=== PATIENT | female | born 1965 | race Caucasian/White ===

== ENCOUNTER 2019-02-07 12:31 | Emergency (ER) | payer OTHER ==
[~2019-02-07] VITALS: Ht 160 cm; Wt 70.0 kg
[2019-02-07 12:38] VITALS: BP 128/91
--- NOTE | 2019-02-07 13:20 | NUR ---
PT TO RADIOLOGY
--- NOTE | 2019-02-07 14:00 | NUR ---
REPORT FROM YUNIER CUMMINS PATIENT RESTING COMFORTABLY ON GURNEY ALERT/ORIENTED/NO NEURO DEFICITS NOTED REPORTED CONTINUED LEFT ANKLE PAIN- ELEVATED/ICE PACK PLACED WELL PETEY WRAP CMS INTACT POST TREATMENT ALSO PROVIDED WITH CRUTCHES- CRUTCH WALKED TO RESTROOM W/ NO DIFFICULTY CT CALLED TO EXPEDITE EXAM- TECH TO SCAN PATIENT IMMEDIATELY
--- NOTE | 2019-02-07 14:30 | NUR ---
TO CT SCAN
[2019-02-07] MEDS ORDERED: HYDROcodone/APAP 5/325 TABLET PO ONE (15:00)
[2019-02-07] MEDS ORDERED: HYDROcodone/APAP 5/325 TABLET ONE (15:10)
--- NOTE | 2019-02-07 15:28 | NUR ---
PATIENT DISCHARGED IN THE COMPANY OF HER BOSS WHO WILL BE DRIVING HER HOME MOMENT AFTER BEING MEDICATED WITH 5MG OF NORCO. DIABETIC EDUCATOR COMFORTABLE SENDING HER HOME IN SETTING OF RECENT NARCOTIC ADMIN PATIENT NOT NAIVE TO NARCOTICS AND REPORTS SHE WILL BE WATCHED BY ROOMATE FOR THE REST OF THE DAY. REVIEWED RICE/NEUROLOGICAL SXS TO WATCH FOR NECCESATATING RETURN TO MEDICAL CARE
== END 2019-02-07 15:31 | disposition home or self-care (01) ==
LOC: ED 15:25
DX: S93.402A Sprain of unspecified ligament of left ankle, initial encounter (principal); S09.90XA Unspecified injury of head, initial encounter; W01.0XXA Fall on same level from slipping, tripping and stumbling without subsequent striking against object, initial encounter; Y93.89 Activity, other specified; Y92.69 Other specified industrial and construction area as the place of occurrence of the external cause; Y99.0 Civilian activity done for income or pay
CPT/HCPCS: 70450; 72050; 99284

== ENCOUNTER 2020-10-14 20:19 | Inpatient (IN) | payer MEDICAID, OTHER ==
[~2020-10-14] VITALS: Ht 160 cm; Wt 56.0 kg
[2020-10-14] MEDS ORDERED: ONDANSETRON 2MG/ML, 2ML ONE ×2 (20:54→23:18)
[2020-10-14] MEDS ORDERED: METOCLOPRAMIDE 5 MG/ML, 2ML ONE (20:54)
[2020-10-14] MEDS ORDERED: MORPHINE SULFATE 4 MG/ML, 1ML ONE (20:55)
[2020-10-14] MEDS ORDERED: MORPHINE SULFATE 4 MG/ML, 1ML IVPush PRN (21:00)
[2020-10-14] MEDS ORDERED: ONDANSETRON 2MG/ML, 2ML IVPush ONE (21:00)
[2020-10-14] MEDS ORDERED: METOCLOPRAMIDE 5 MG/ML, 2ML IVPush ONE (21:00)
[2020-10-14 21:10] LABS: BASOPHILS % (AUTO) 1 % (0-1); EOSINOPHILS % (AUTO) 0 % (1-7); LYMPHOCYTES % (AUTO) 11 % (22-44); MD SCAN; MEAN CORPUSCULAR HEMOGLOBIN 34.8 pg (27.0-34.8); MEAN CORPUSCULAR HGB CONC 34.3 g/dL (32.4-35.8); MEAN PLATELET VOLUME 7.8 fL (7.4-10.4); MONOCYTES % (AUTO) 4 % (2-9); NEUTROPHILS % (AUTO) 83 % (42-75); PLATELET COUNT 355 x10^3/uL (130-400); RED BLOOD COUNT 4.25 x10^6/uL (3.82-5.3); RED CELL DISTRIBUTION WIDTH 13.9 % (9.6-15.2)
[2020-10-14 21:16] LABS: ALANINE AMINOTRANSFERASE 23 U/L (12-78); ALBUMIN 4.5 g/dL (3.4-5.0); ANION GAP 7 mmol/L (5-15); CALCIUM 10.1 mg/dL (8.5-10.1); CHLORIDE 94 mmol/L (98-107); CREATININE 0.88 mg/dL (0.55-1.02)
[2020-10-14 21:18] LABS: ALKALINE PHOSPHATASE 138 U/L (45-117); BILIRUBIN,TOTAL 0.9 mg/dL (0.2-1.0)
--- NOTE | 2020-10-14 21:57 | NUR ---
phoned ct scan, pt next up for scan
--- NOTE | 2020-10-14 21:58 | NUR ---
pt resting in [facility], states relief from pain and nausea at this time
[2020-10-14] MEDS ORDERED: OMNIPAQUE 350 MG/ML, 100ML BOTTLE ONE (22:12)
[2020-10-14] MEDS ORDERED: SODIUM CHLORIDE 0.9% 1,000ML IVBOLUS ONE (23:00)
[2020-10-14] MEDS ORDERED: DIPHENHYDRAMINE 25 MG CAPSULE PO ONE (23:00)
[2020-10-14] MEDS ORDERED: DIPHENHYDRAMINE 25 MG CAPSULE ONE (23:01)
--- NOTE | 2020-10-14 23:52 | NUR ---
pt given po benadry and some water. pt able to keep down without any vomiting at this time.
[2020-10-15] MEDS ORDERED: ONDANSETRON 2MG/ML, 2ML IVPush ONE
[2020-10-15] MEDS ORDERED: ZIPRASIDONE 20 MG INJ IM ONE ×2 (00:17→00:30)
--- NOTE | 2020-10-15 00:45 | NUR ---
break rn- pt requested medication for vomiting and to help her sleep. pt a/o x4 and on monitor with vss. pt medicated per mar
[2020-10-15] MEDS ORDERED: LABETALOL 5MG/ML, 20ML IVPush PRN (01:00)
[2020-10-15] MEDS ORDERED: LORazepam 2 MG/ML, 1ML IVPush PRN (01:00)
[2020-10-15] MEDS ORDERED: DOCUSATE 100 MG CAPSULE PO PRN (01:00)
[2020-10-15] MEDS ORDERED: PROMETHAZINE 25 MG/ML, 1ML IM PRN (01:00)
[2020-10-15] MEDS ORDERED: HEPARIN 5,000 UNITS/ML, 1ML ONE ×2 (01:39→08:21)
[2020-10-15] MEDS: HEPARIN 5,000 UNITS/ML, 1ML SQ SCH ×3 (01:50→18:37)
[2020-10-15] MEDS: SODIUM CHLORIDE 0.9% 1,000 ML IV SCH ×2 (01:50→11:00)
--- NOTE | 2020-10-15 01:51 | NUR ---
pt medicated per emar, ekg taken, pt on all monitors and on hospital bed. no other needs at this time
--- NOTE | 2020-10-15 03:53 | NUR ---
PT AMBULATED STEADY TO RESTROOM, PLACED BACK ON ALL MONITORS, LAYING IN BED
[2020-10-15] MEDS ORDERED: PROMETHAZINE 25 MG/ML, 1ML ONE (04:02)
--- NOTE | 2020-10-15 05:13 | NUR ---
PT STATES FEELING LESS NAUSEAOUS, RESTING IN BED, NO OTHER NEEDS AT THIS TIME
--- NOTE | 2020-10-15 07:10 | NUR ---
REPORT GIVEN TO PLACIDO GONZALES
[2020-10-15 07:32] LABS: BASOPHILS % (AUTO) 0 % (0-1); EOSINOPHILS % (AUTO) 0 % (1-7); LYMPHOCYTES % (AUTO) 14 % (22-44); MEAN CORPUSCULAR HEMOGLOBIN 34.7 pg (27.0-34.8); MEAN CORPUSCULAR HGB CONC 33.8 g/dL (32.4-35.8); MEAN PLATELET VOLUME 7.5 fL (7.4-10.4); MONOCYTES % (AUTO) 6 % (2-9); NEUTROPHILS % (AUTO) 79 % (42-75); PLATELET COUNT 324 x10^3/uL (130-400); RED BLOOD COUNT 3.73 x10^6/uL (3.82-5.3); RED CELL DISTRIBUTION WIDTH 13.8 % (9.6-15.2)
[2020-10-15 07:37] LABS: MD NO
[2020-10-15 07:41] LABS: ALANINE AMINOTRANSFERASE 19 U/L (12-78); ALBUMIN 3.6 g/dL (3.4-5.0); ANION GAP 7 mmol/L (5-15); CALCIUM 8.6 mg/dL (8.5-10.1); CHLORIDE 105 mmol/L (98-107); CREATININE 0.61 mg/dL (0.55-1.02)
[2020-10-15 07:44] LABS: ALKALINE PHOSPHATASE 118 U/L (45-117); BILIRUBIN,TOTAL 0.4 mg/dL (0.2-1.0); TOTAL PROTEIN 6.7 g/dL (6.4-8.2)
[2020-10-15] MEDS: METOCLOPRAMIDE 5 MG/ML, 2ML IVPush SCH ×3 (08:17→18:37)
--- NOTE | 2020-10-15 08:17 | NUR ---
PT HAS A NUC MED TEST AT 1000. DEPARTMENT REQUESTED TO HOLD REGLAN DUE TO TEST.
[2020-10-15] MEDS ORDERED: ONDANSETRON 2MG/ML, 2ML ONE (08:21)
[2020-10-15] MEDS ORDERED: NICOTINE 14MG/24 HR PATCH.TD24 ONE (08:21)
[2020-10-15] MEDS: NICOTINE 14MG/24 HR PATCH.TD24 TD SCH (08:30)
[2020-10-15] MEDS: ONDANSETRON 2MG/ML, 2ML IVPush PRN ×2 (08:31→19:56)
--- NOTE | 2020-10-15 08:48 | NUR ---
OFF FLOOR TO NUC MED
--- NOTE | 2020-10-15 10:42 | NUR ---
PT BACK IN ROOM
--- NOTE | 2020-10-15 10:54 | NUR ---
PT MEDICATED FOR ABD PAIN 06/27
--- NOTE | 2020-10-15 12:36 | NUR ---
PT LUNCH JOEY MCCLELLAN. PT ASSISTED TO THE BATHROOM.
[2020-10-15] MEDS ORDERED: METOCLOPRAMIDE 5 MG/ML, 2ML ONE (12:53)
[2020-10-15] MEDS ORDERED: ACETAMINOPHEN 325 MG TABLET ONE (15:01)
[2020-10-15] MEDS: ACETAMINOPHEN 325 MG TABLET PO PRN ×2 (15:03→19:56)
--- NOTE | 2020-10-15 15:36 | NUR ---
PHONE REPORT TO PLACIDO VAZ
[2020-10-15 17:50] VITALS: BP 106/68
[2020-10-15 19:31] VITALS: BP 92/55
[2020-10-15 19:40] VITALS: BP 92/55
[2020-10-16] MEDS: HEPARIN 5,000 UNITS/ML, 1ML SQ SCH ×3 (00:59→08:37)
[2020-10-16 01:03] VITALS: BP 119/76
[2020-10-16 01:28] LABS: AMPHETAMINE SCREEN, URINE Negative (Negative); BARBITURATE SCREEN, URINE Negative (Negative); BENZODIAZEPINE SCREEN, URINE Negative (Negative); CANNABINOID SCREEN, URINE Negative (Negative); COCAINE SCREEN, URINE Negative (Negative); METHADONE SCREEN, URINE Negative (Negative); OPIATE SCREEN, URINE Positive (Negative)
[2020-10-16 05:56] LABS: BASOPHILS % (AUTO) 1 % (0-1); EOSINOPHILS % (AUTO) 2 % (1-7); LYMPHOCYTES % (AUTO) 28 % (22-44); MEAN CORPUSCULAR HEMOGLOBIN 34.5 pg (27.0-34.8); MEAN CORPUSCULAR HGB CONC 33.6 g/dL (32.4-35.8); MEAN PLATELET VOLUME 7.6 fL (7.4-10.4); MONOCYTES % (AUTO) 10 % (2-9); NEUTROPHILS % (AUTO) 59 % (42-75); PLATELET COUNT 292 x10^3/uL (130-400); RED BLOOD COUNT 3.63 x10^6/uL (3.82-5.3); RED CELL DISTRIBUTION WIDTH 13.9 % (9.6-15.2)
[2020-10-16 05:57] LABS: MD NO
[2020-10-16 06:07] LABS: ANION GAP 5 mmol/L (5-15); CALCIUM 8.4 mg/dL (8.5-10.1); CHLORIDE 109 mmol/L (98-107)
[2020-10-16 06:08] LABS: CREATININE 0.65 mg/dL (0.55-1.02)
[2020-10-16 08:00] VITALS: BP 104/65
[2020-10-16] MEDS: METOCLOPRAMIDE 5 MG/ML, 2ML IVPush SCH ×2 (08:31→11:50)
[2020-10-16] MEDS: NICOTINE 14MG/24 HR PATCH.TD24 TD SCH (08:32)
[2020-10-16] MEDS: ACETAMINOPHEN 325 MG TABLET PO PRN (08:32)
[2020-10-16] MEDS ORDERED: MAGNESIUM HYDROXIDE 8%, 30ML UDC PO SCH (09:30)
== END 2020-10-16 12:50 | disposition home or self-care (01) | DRG 426 ==
LOC: ED 21:53 → EDIP 10-15 00:47 → 4NE 10-15 17:17 → DCLOUNGE 10-16 12:48
PROVIDERS: ADMIT Family Medicine; ATTEND Hospitalist
DX: E87.1 Hypo-osmolality and hyponatremia (principal); F10.10 Alcohol abuse, uncomplicated; F17.210 Nicotine dependence, cigarettes, uncomplicated; F19.10 Other psychoactive substance abuse, uncomplicated; F31.9 Bipolar disorder, unspecified; F41.8 Other specified anxiety disorders; Z91.81 History of falling; Z90.710 Acquired absence of both cervix and uterus; E86.0 Dehydration; D73.5 Infarction of spleen; D73.4 Cyst of spleen
CPT/HCPCS: 36415; 74177; 78264; 80048; 80053; 80307; 80320; 83690; 85025; 93005; 96374; 96375; 99285; G0378; J1644; J2405; J2550; J3486; Q9967; A9541; G0480; J2270; J2765; J7030; Q0163